=== PATIENT | male | born 1975 | race Two or more races ===

== ENCOUNTER 2017-01-06 11:16 | Emergency (ER) | payer MEDICAID ==
[2017-01-06] MEDS ORDERED: IOPAMIDOL 300 (61%) 100 ML VIAL IV ONE (11:17)
[2017-01-06 12:22] LABS: ABSOLUTE NEUTROPHIL COUNT 4.1 K/mm3 (1.8-7.7); BASO # 0.1 K/mm3 (0.0-0.2); BASO % 0.7 % (0.2-1.0); EOS # 0.3 (0.0-0.5); EOS % 3.1 % (0.9-2.9); HEMATOCRIT 43.9 % (32.0-52.0); HEMOGLOBIN 14.6 gm/l (14.0-18.0); IMM NEUT% 0.2 % (0-1); LYMPH # 3.2 (1.0-4.8); LYMPH % 38.2 % (15-45); MEAN CELL VOLUME 93.4 fl (80.0-94.0); MEAN CORPUSCULAR HEMOGLOBIN 31.1 pg (27.0-31.0); MEAN CORPUSCULAR HGB CONC 33.3 g/dl (33.0-37.0); MEAN PLATELET VOLUME 11.7 fl (7.4-10.4); MONO # 0.6 (0.0-0.8); MONO % 7.7 % (4-12); NEUT % 50.1 % (43-75); PLATELET COUNT 185 K/mm3 (130-400); RED CELL DISTRIBUTION WIDTH 12.2 % (11.5-14.5)
--- NOTE | 2017-01-06 13:16 | CT ---
Exam Type: ABD/PELVIS W/ CON Date and Time: 01/06/2017 12:07 PM Clinical information: Rectal pain. Comparison: None Procedure: Imaging device: [employer] Aquilion [address] scanner 1 mm axial images were obtained through the abdomen and pelvis. Stacked reconstructed 3, 4 and 5 mm images were photographed in the axial coronal and sagittal planes. No oral contrast was utilized for this examination. 100 ml of Isovue-300 was injected intravenously. Exam: with intravenous contrast. FINDINGS: Lung bases:The visualized lung bases appear to be appropriate with no mass, effusion or consolidation visualized. Liver: the liver is homogeneous with no discrete abnormality visualized. No definite findings of biliary dilatation are observed. Spleen: The spleen is homogeneous and does not appear to be enlarged. Gallbladder: Partially contracted. No adjacent inflammatory stranding is observed. Pancreas: Normal without enlargement or evidence of adjacent inflammatory changes. Adrenal glands: Normal without enlargement or evidence of adjacent inflammatory changes. Abdominal aorta: The aorta is of normal caliber and appears to be without significant atherosclerotic disease. Kidneys: A 1.9 cm low-attenuation focus is seen within the medial right kidney. The attenuation values are measured at 33 Hounsfield units. This may reflect a cyst though ultrasonographic correlation is recommended. No evidence of hydronephrosis is seen. Bowel structures: The visualized bowel is of normal caliber without evidence of dilatation or obstruction. No free fluid or mesenteric inflammatory changes are identified. The visualized rectum appears to be unremarkable. No perirectal mass or infiltration of the adjacent perirectal fat is visualized. Appendix: Not well visualized. However, no pericecal inflammatory stranding is suggested. Bladder: The bladder is of normal contour. No wall thickening or significant distention is observed. Hernia: There is a small fat filled left inguinal hernia identified. Adenopathy: No significant enlarged adenopathy is visualized. Osseous structures: No discrete osseous abnormalities are identified. Pelvic structures: No discrete pelvic abnormalities are visualized in this examination. IMPRESSION: 1. No discrete rectal abnormality visualized. The perirectal fat appears to be unremarkable. 2. Nonvisualization of the appendix, though no pericecal inflammatory stranding is observed. 3. A 1.9 cm low-attenuation focus within the medial right kidney with indeterminate attenuation values. This likely reflects a renal cyst, though ultrasonographic correlation is recommended. 4. A small fat filled left inguinal hernia.
== END 2017-01-06 14:20 | disposition home or self-care (01) ==
LOC: ED 11:16
DX: K64.9 Unspecified hemorrhoids (principal); E11.9 Type 2 diabetes mellitus without complications; Z79.84 Long term (current) use of oral hypoglycemic drugs